=== PATIENT | male | born 1990 | race Caucasian/White ===

== ENCOUNTER 2019-02-02 07:26 | Emergency (ER) | payer OTHER ==
[~2019-02-02] VITALS: Ht 185.4 cm; Wt 86.2 kg
[2019-02-02] MEDS ORDERED: ARIP15 PO (07:57)
[2019-02-02] MEDS ORDERED: SERT100 PO (07:57)
[2019-02-02] MEDS ORDERED: Lamictal100 MG PO (07:58)
[2019-02-02] MEDS ORDERED: Mirtazapine7.5 MG PO (07:58)
[2019-02-02] MEDS ORDERED: LOSA50 PO (07:59)
[2019-02-02] MEDS ORDERED: PROP10 PO (07:59)
[2019-02-02] MEDS ORDERED: Hydrochloroth12.5 MG PO (07:59)
[2019-02-02] MEDS ORDERED: NOVOLOG FL100 UNIT/1 SC (08:00)
[2019-02-02] MEDS ORDERED: AMPDEX10CR PO (08:00)
[2019-02-02] MEDS ORDERED: INSDET100 SC ×2 (08:01)
[2019-02-02] MEDS ORDERED: Norco 5-325 Ta1 EACH PO (08:21)
[2019-02-02] MEDS ORDERED: Ciprodex Otic7.5 ML RIGHTEAR (08:21)
[2019-02-02] MEDS ORDERED: IBUP800 PO (08:21)
[2019-02-02] MEDS ORDERED: Amoxicillin500 MG PO (08:21)
== END 2019-02-02 09:00 | disposition home or self-care (01) ==
LOC: ER 07:26
DX: H66.91 Otitis media, unspecified, right ear (principal); H60.91 Unspecified otitis externa, right ear; H93.13 Tinnitus, bilateral; E11.9 Type 2 diabetes mellitus without complications; F17.200 Nicotine dependence, unspecified, uncomplicated; Z79.899 Other long term (current) drug therapy; Z79.4 Long term (current) use of insulin
CPT/HCPCS: 99282